=== PATIENT | female | born 1985 | race Caucasian/White ===

== ENCOUNTER → 2017-05-22 | Outpatient (REF) | payer BC, OTHER ==
[2017-05-22 13:49] LABS: CONTROL LINE HCG INT CTR LINE PRESENT
[2017-05-22 14:09] LABS: ALBUMIN 3.9 GM/DL (3.2-5.2); ALBUMIN/GLOBULIN RATIO 1.34 (1.00-1.93); ALKALINE PHOSPHATASE 79 U/L (45-117); ALT/SGPT 24 U/L (12-78); ANION GAP 8 MEQ/L (8-16); AST/SGOT 11 U/L (15-37); BILIRUBIN,TOTAL 0.6 MG/DL (0.2-1.0); BLOOD UREA NITROGEN 6 MG/DL (7-18); CALCIUM LEVEL 8.9 MG/DL (8.5-10.1); CARBON DIOXIDE LEVEL 26 MEQ/L (21-32); CHLORIDE LEVEL 107 MEQ/L (98-107); CREATININE FOR GFR 0.69 MG/DL (0.55-1.02); FREE T4 0.93 NG/DL (0.76-1.46); GLOMERULAR FILTRATION RATE > 60.0 (>60); GLUCOSE, FASTING 105 MG/DL (70-105); POTASSIUM SERUM 3.9 MEQ/L (3.5-5.1); SODIUM LEVEL 141 MEQ/L (136-145); TOTAL PROTEIN 6.8 GM/DL (6.4-8.2)
[2017-05-22 14:10] LABS: CONTROL LINE HPYORI INT CTR LINE PRESENT
[2017-05-22 14:16] LABS: BASO % 0.2 % (0.0-1.0); EOS % 0.6 % (0.0-3.0); LARGE UNSTAINED CELL # 0.1 K/mm3 (0.0-0.4); LARGE UNSTAINED CELL % 0.7 % (0.0-4.0); LYMPH # 2.1 K/mm3 (1.5-4.5); LYMPH % 23.4 % (24.0-44.0); MEAN CORPUSCULAR HEMOGLOBIN 31.8 pg (27.0-33.0); MEAN CORPUSCULAR HGB CONC 33.9 g/dl (32.0-36.5); MEAN CORPUSCULAR VOLUME 93.7 fl (80.0-96.0); MONO # 0.3 K/mm3 (0.0-0.8); MONO % 3.5 % (0.0-5.0); NEUTROPHILS # 6.3 K/mm3 (1.8-7.7); NEUTROPHILS % 71.6 % (36.0-66.0); PLATELET COUNT, AUTOMATED 227 k/mm3 (150-450); RED CELL DISTRIBUTION WIDTH 12.2 % (11.5-14.5); WHITE BLOOD COUNT 8.9 K/mm3 (4.0-10.0)
== END ==
LOC: M LAB REF 12:33
PROVIDERS: ATTEND Physician Assistant Medical
DX: R11.0 Nausea (principal); R53.83 Other fatigue

== ENCOUNTER → 2017-11-05 | Outpatient (REF) | payer OTHER ==
[2017-11-11 14:13] LABS: HPV HYBRID CAPTURE II Negative (Negative)
== END ==
LOC: M LAB REF 17:29
DX: Z12.4 Encounter for screening for malignant neoplasm of cervix (principal)

== ENCOUNTER → 2018-04-29 | Outpatient (CLI) | payer OTHER ==
[2018-04-29 13:18] LABS: BASO % 0.3 % (0.0-1.0); EOS # 0.1 10^3/uL (0.0-0.50); EOS % 0.9 % (0.0-3.0); HEMATOCRIT 41.8 % (36.0-47.0); HEMOGLOBIN 14.3 g/dl (12.0-15.5); IMMATURE GRANULOCYTE % 0.3 % (0-3.0); LYMPH # 2.2 10^3/uL (1.5-4.5); LYMPH % 30.8 % (24.0-44.0); MEAN CORPUSCULAR HEMOGLOBIN 32.1 pg (27.0-33.0); MEAN CORPUSCULAR HGB CONC 34.2 g/dl (32.0-36.5); MEAN CORPUSCULAR VOLUME 93.7 fl (80.0-96.0); MONO # 0.6 10^3/uL (0.0-0.8); MONO % 8.2 % (0.0-5.0); NEUTROPHILS # 4.2 10^3/uL (1.8-7.7); NEUTROPHILS % 59.5 % (36.0-66.0); PLATELET COUNT, AUTOMATED 222 10^3/uL (150-450); RED BLOOD COUNT 4.46 10^6/uL (4.00-5.40); RED CELL DISTRIBUTION WIDTH 11.9 % (11.5-14.5)
[2018-04-29 13:51] LABS: ALBUMIN 3.7 GM/DL (3.2-5.2); ALBUMIN/GLOBULIN RATIO 1.23 (1.00-1.93); ALKALINE PHOSPHATASE 72 U/L (45-117); ALT/SGPT 20 U/L (12-78); ANION GAP 8 MEQ/L (8-16); AST/SGOT 8 U/L (7-37); BILIRUBIN,TOTAL 0.6 MG/DL (0.2-1.0); BLOOD UREA NITROGEN 7 MG/DL (7-18); CALCIUM LEVEL 8.8 MG/DL (8.5-10.1); CARBON DIOXIDE LEVEL 26 MEQ/L (21-32); CHLORIDE LEVEL 109 MEQ/L (98-107); CREATININE FOR GFR 0.69 MG/DL (0.55-1.30); GLOMERULAR FILTRATION RATE > 60.0 (>60); GLUCOSE, FASTING 86 MG/DL (70-100); POTASSIUM SERUM 4.3 MEQ/L (3.5-5.1); SODIUM LEVEL 143 MEQ/L (136-145); TOTAL PROTEIN 6.7 GM/DL (6.4-8.2)
[2018-04-29 13:54] LABS: TOTAL 25(OH) VITAMIN D 33.4 NG/ML (30.0-100.0)
== END ==
LOC: M ADAMS 08:42
DX: R51 Headache (principal); E55.9 Vitamin D deficiency, unspecified
CPT/HCPCS: 84443

== ENCOUNTER → 2019-09-02 | Outpatient (REF) | payer BC, OTHER ==
[2019-09-02 13:46] LABS: HCG, SERUM QUALITATIVE POSITIVE (NEGATIVE)
[2019-09-02 14:15] LABS: HCG, SERUM QUANTITATIVE 1077 MIU/ML
== END ==
LOC: M LABDRWAD 12:36
PROVIDERS: ATTEND Physician Assistant
DX: N91.2 Amenorrhea, unspecified (principal)

== ENCOUNTER → 2019-09-05 | Outpatient (REF) | payer BC, OTHER | LOC: M LAB REF 09:31 | PROVIDERS: ATTEND Physician Assistant | DX: N91.2 Amenorrhea, unspecified (principal) ==

== ENCOUNTER → 2019-09-09 | Outpatient (REF) | payer BC, OTHER ==
[2019-09-09 19:47] LABS: BASO % 0.2 % (0.0-1.0); EOS # 0.1 10^3/uL (0.0-0.5); EOS % 0.8 % (0.0-3.0); HEMATOCRIT 38.8 % (36.0-47.0); LYMPH # 2.5 10^3/uL (1.5-5.0); LYMPH % 22.9 % (24.0-44.0); MEAN CORPUSCULAR HEMOGLOBIN 30.8 pg (27.0-33.0); MEAN CORPUSCULAR HGB CONC 33.5 g/dl (32.0-36.5); MEAN CORPUSCULAR VOLUME 91.9 fl (80.0-96.0); MONO # 0.7 10^3/uL (0.0-0.8); MONO % 6.4 % (0.0-5.0); NEUTROPHILS # 7.5 10^3/uL (1.5-8.5); NEUTROPHILS % 69.1 % (36.0-66.0); PLATELET COUNT, AUTOMATED 328 10^3/uL (150-450); RED BLOOD COUNT 4.22 10^6/uL (4.00-5.40); WHITE BLOOD COUNT 10.9 10^3/uL (4.0-10.0)
[2019-09-09 20:14] LABS: ALBUMIN 3.9 GM/DL (3.2-5.2); ALT/SGPT 13 U/L (12-78); BILIRUBIN,TOTAL 0.3 MG/DL (0.2-1.0); BLOOD UREA NITROGEN 6 MG/DL (7-18); CALCIUM LEVEL 9.1 MG/DL (8.5-10.1); CARBON DIOXIDE LEVEL 25 MEQ/L (21-32); CHLORIDE LEVEL 105 MEQ/L (98-107); CREATININE FOR GFR 0.58 MG/DL (0.55-1.30); GLOMERULAR FILTRATION RATE > 60.0 (>60); GLUCOSE, FASTING 84 MG/DL (70-100); HCG, SERUM QUANTITATIVE 12136 MIU/ML; POTASSIUM SERUM 3.7 MEQ/L (3.5-5.1); SODIUM LEVEL 137 MEQ/L (136-145)
== END ==
LOC: M LABDRWAD 09:54
PROVIDERS: ATTEND Physician Assistant
DX: N91.2 Amenorrhea, unspecified (principal); Z00.00 Encounter for general adult medical examination without abnormal findings

== ENCOUNTER → 2019-09-15 | Outpatient (REF) | payer BC, OTHER ==
[2019-09-15 17:14] LABS: HEMATOCRIT 37.9 % (36.0-47.0); HEMOGLOBIN 12.5 g/dl (12.0-15.5); MEAN CORPUSCULAR HEMOGLOBIN 29.8 pg (27.0-33.0); MEAN CORPUSCULAR VOLUME 90.5 fl (80.0-96.0); PLATELET COUNT, AUTOMATED 332 10^3/uL (150-450); RED BLOOD COUNT 4.19 10^6/uL (4.00-5.40); WHITE BLOOD COUNT 11.9 10^3/uL (4.0-10.0)
[2019-09-16 10:54] LABS: HEPATITIS C VIRUS ABY INDEX 0.2 INDEX (<0.8); HIV 1&2 SCREEN CENTAUR NEGATIVE (NEGATIVE); RUBELLA IgG QUALITATIVE IMMUNE (IMMUNE)
== END ==
LOC: M LAB REF 16:48
PROVIDERS: ATTEND Obstetrics & Gynecology
DX: O36.80X0 Pregnancy with inconclusive fetal viability, not applicable or unspecified (principal); Z3A.00 Weeks of gestation of pregnancy not specified

== ENCOUNTER → 2019-11-17 | Outpatient (REF) | payer BC | LOC: M LAB REF 12:58 | PROVIDERS: ATTEND Obstetrics & Gynecology | DX: O23.41 Unspecified infection of urinary tract in pregnancy, first trimester (principal) ==

== ENCOUNTER → 2020-01-30 | Outpatient (CLI) | payer BC ==
[2020-01-30 12:31] LABS: HEMATOCRIT 31.1 % (36.0-47.0); HEMOGLOBIN 10.9 g/dl (12.0-15.5); MEAN CORPUSCULAR HEMOGLOBIN 30.6 pg (27.0-33.0); MEAN CORPUSCULAR VOLUME 87.4 fl (80.0-96.0); PLATELET COUNT, AUTOMATED 236 10^3/uL (150-450); RED BLOOD COUNT 3.56 10^6/uL (4.00-5.40); WHITE BLOOD COUNT 8.7 10^3/uL (4.0-10.0)
== END ==
LOC: M LAB 10:19
PROVIDERS: ATTEND Obstetrics & Gynecology
DX: Z34.02 Encounter for supervision of normal first pregnancy, second trimester (principal)

== ENCOUNTER → 2020-05-09 | Outpatient (CLI) | payer BC ==
[~2020-05-09] MED LIST: BUPR150T5 PO; IBUP80TA PO
== END ==
LOC: M LABSMTC 12:16
PROVIDERS: ATTEND Anesthesiology
DX: Z01.812 Encounter for preprocedural laboratory examination (principal); Z20.828 Contact with and (suspected) exposure to other viral communicable diseases
CPT/HCPCS: C9803; U0002

== ENCOUNTER 2020-05-10 05:34 | Inpatient (IN) | payer BC ==
[~2020-05-10] VITALS: Ht 167.6 cm; Wt 87.3 kg
[2020-05-10] VITALS (7 sets, daily range): BP systolic 102–121; BP diastolic 64–83
[2020-05-10] MEDS ORDERED: BUPR150T5 PO (06:12)
[2020-05-10] MEDS ORDERED: LACTATED RINGER'S 1000 ML IV STA (06:17)
[2020-05-10] MEDS ORDERED: LR 1,000 ML IV SCH ×2 (06:17→09:30)
[2020-05-10] MEDS ORDERED: BICITRA 30ML SOLN UDC PO ONE (06:30)
[2020-05-10] MEDS ORDERED: ceFAZolin SOD 2 GM in IV 1 EA IV ONE (06:30)
[2020-05-10 06:39] LABS: HEMATOCRIT 32.6 % (36.0-47.0); HEMOGLOBIN 11.1 g/dl (12.0-15.5); MEAN CORPUSCULAR HEMOGLOBIN 29.3 pg (27.0-33.0); PLATELET COUNT, AUTOMATED 243 10^3/uL (150-450); RED BLOOD COUNT 3.79 10^6/uL (4.00-5.40); WHITE BLOOD COUNT 14.1 10^3/uL (4.0-10.0)
[2020-05-10] MEDS ORDERED: MORPHINE PRES-FREE INJ 10 MG/10 ML VIAL (J2274) As Ordered ONE (07:17)
[2020-05-10] MEDS ORDERED: OXYTOCIN INJ 10 UNITS/ML VIAL (J2590) As Ordered ONE (07:19)
[2020-05-10] MEDS ORDERED: ONDANSETRON 4MG/2ML VIAL IV PRN ×2 (07:47→09:30)
[2020-05-10] MEDS ORDERED: NALBUPHINE HCL 10 MG/ML AMP (J2300) IV PRN ×2 (07:47→09:30)
[2020-05-10] MEDS ORDERED: NALOXONE INJ 0.4MG/1ML VIAL (J2310 PER 1MG) IV PRN ×2 (07:47)
[2020-05-10] MEDS ORDERED: diphenhydrAMINE 50MG/ML VIAL (J1200) IV PRN (07:47)
[2020-05-10] MEDS ORDERED: METOCLOPRAMIDE INJ 10MG/2ML VIAL (J2765 PER 1) IV PRN (07:47)
[2020-05-10] MEDS ORDERED: ONDANSETRON 4MG/2ML VIAL As Ordered ONE (08:04)
[2020-05-10] MEDS ORDERED: KETOROLAC 60MG 2ML VIAL As Ordered ONE (08:04)
[2020-05-10] MEDS ORDERED: dexameTHASONE 4 MG/ML 1ML VIAL (J1100 PER 1MG) As Ordered ONE (08:04)
[2020-05-10] MEDS ORDERED: fentaNYL 100 MCG/2 ML INJECTION (J3010) As Ordered ONE (08:22)
[2020-05-10] MEDS ORDERED: OXYTOCIN DRIP 30 UNITS in IV 1 EA IV SCH (08:58)
[2020-05-10] MEDS: PRENATAL VITAMINS CHEWABLE TABLET PO SCH (09:00)
[2020-05-10] MEDS ORDERED: RHOGAM 300 MCG (1500 IU) INJ (J2790) IM SCH (09:00)
[2020-05-10] MEDS ORDERED: MOM 30ML SUSPENSION UDC PO PRN (09:00)
[2020-05-10] MEDS: DOCUSATE SODIUM 100 MG CAP PO SCH ×2 (09:00→20:09)
[2020-05-10] MEDS ORDERED: MEASLES,MUMPS,RUBELLA VACCINE INJ (MMR-II) (90707) SC SCH (09:00)
[2020-05-10] MEDS ORDERED: PERCOCET 5MG/325MG TAB PO PRN (09:00)
[2020-05-10] MEDS ORDERED: OXYTOCIN 30 UNITS IN 0.9% NaCl 500ML IV BAG (J2590) As Ordered ONE (09:15)
[2020-05-10] MEDS ORDERED: fentaNYL 100 MCG/2 ML INJECTION (J3010) IV PRN (09:30)
[2020-05-10] MEDS ORDERED: oxyCODONE 5MG TAB PO PRN (09:30)
[2020-05-10] MEDS ORDERED: IBUPROFEN 800 MG TAB PO SCH ×2 (09:30→16:00)
[2020-05-10 10:52] LABS: CORD GAS HCO3 A 23.6 MEQ/L; CORD GAS PCO2 A 52.7 mmHg; CORD GAS PH A 7.269 UNITS; CORD GAS PO2 A 17.7 mmHg; CORD GAS TCO2 A 25.2 MEQ/L
[2020-05-10 10:53] LABS: CORD GAS HCO3 V 19.2 MEQ/L; CORD GAS O2 SAT A 34.3 %; CORD GAS PCO2 V 37.6 mmHg; CORD GAS PH V 7.326 UNITS; CORD GAS PO2 V 32.1 mmHg; CORD GAS SBC A 19.7 MEQ/L; CORD GAS TCO2 V 20.4 MEQ/L
[2020-05-10 10:54] LABS: CORD GAS ABE V -6.1; CORD GAS O2 SAT V 76.1 %
[2020-05-10] MEDS: IBUPROFEN 800 MG TAB PO SCH (17:00)
[2020-05-11] MEDS: IBUPROFEN 800 MG TAB PO SCH ×3 (01:33→16:57)
[2020-05-11 01:36] VITALS: BP 115/81
[2020-05-11 06:00] VITALS: BP 116/66
[2020-05-11] MEDS ORDERED: IBUP80TA PO (08:39)
[2020-05-11] MEDS: DOCUSATE SODIUM 100 MG CAP PO SCH ×2 (08:54→22:01)
[2020-05-11] MEDS: PRENATAL VITAMINS CHEWABLE TABLET PO SCH (08:54)
[2020-05-11 09:45] LABS: HEMATOCRIT 27.7 % (36.0-47.0); HEMOGLOBIN 9.5 g/dl (12.0-15.5); MEAN CORPUSCULAR HEMOGLOBIN 30.2 pg (27.0-33.0); MEAN CORPUSCULAR HGB CONC 34.3 g/dl (32.0-36.5); MEAN CORPUSCULAR VOLUME 87.9 fl (80.0-96.0); PLATELET COUNT, AUTOMATED 217 10^3/uL (150-450); RED BLOOD COUNT 3.15 10^6/uL (4.00-5.40); WHITE BLOOD COUNT 11.8 10^3/uL (4.0-10.0)
[2020-05-11 10:00] VITALS: BP 130/79
[2020-05-11 14:00] VITALS: BP 130/69
[2020-05-11] MEDS ORDERED: IBUPROFEN 800 MG TAB PO SCH (16:00)
[2020-05-11 18:00] VITALS: BP 131/73
[2020-05-11 22:46] VITALS: BP 137/77
[2020-05-12] MEDS: IBUPROFEN 800 MG TAB PO SCH ×2 (01:03→08:53)
[2020-05-12 06:01] VITALS: BP 119/75
[2020-05-12] MEDS: PRENATAL VITAMINS CHEWABLE TABLET PO SCH (08:53)
[2020-05-12] MEDS: DOCUSATE SODIUM 100 MG CAP PO SCH (08:53)
--- NOTE | 2020-05-24 10:15 | RO ---
DATE OF OPERATION: 05/10/2020 INDICATIONS: Alyssia is 34-year-old female 1, para 0, who is post-EDC who desires delivery via section. The patient was also found to have a narrow pubic bone with a floating presentation. After extensive counseling in the office, the decision was made to proceed with a section. PRE-OPERATIVE DIAGNOSES: 1. Post-estimated date of conception, desires delivery via section. 2. 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 POST-OPERATIVE DIAGNOSES: 1. Post-estimated date of conception, desires delivery via section. 2. 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 3. Jeannine breech noted at the time of delivery. PROCEDURE: Primary section. Breech extraction. ANESTHESIA: Spinal. SURGEON: Wayne Tejeda D.O. REPAIR ARMATURE WINDER: Brad MORALES. ESTIMATED BLOOD LOSS: 500 mL. FINDINGS: Live female infant in jeannine breech position. 9 and 9. weight 6 pounds 6 ounces. Normal-appearing tubes and ovaries. Normal placenta. DESCRIPTION OF PROCEDURE: After obtaining informed consent, the patient was taken to the operating room where spinal anesthetic was found to be adequate. She was then draped and prepped in the usual sterile fashion in the supine position. At this point, a Pfannenstiel incision was made. With the help of my shipping assistant, the incision was carried down to the fascia. The fascia was incised in the midline fascia. This was carried through laterally. The superior aspect was dissected in a similar fashion. Peritoneum was identified. Peritoneal cavity was entered bluntly. Superior and inferior dissection of the peritoneum was then done with good visualization of the bladder. At this point, a Mobius skin retractor was placed. A low transverse uterine incision was made. The infant was delivered in an atraumatic fashion via breech extraction. The cord blood and cord gas was sent. Placenta removed manually. Uterus cleared of all clots and debris. Uterine incision was then repaired in two separate layers of 0-Vicryl sutures. The pelvis was copiously irrigated with normal saline and suctioned out. Attention was turned to the peritoneum, which was closed in a running fashion using 2-0 Vicryl. The fascia was closed in two separate segments of 0-Vicryl sutures. All superficial bleeders were coagulated. The skin was reapproximated in a subcuticular fashion using 3-0 Vicryl in a Ambrocio, Steri-Strips placed. Patient tolerated the procedure well. She was then transferred to the recovery room in stable condition. ERICK
--- NOTE | 2020-05-29 11:48 | DSES ---
DATE OF ADMISSION: 05/10/2020. DATE OF DISCHARGE: 05/12/2020. BRIEF HISTORY: A 34-year-old, G1, at 40 and 4/7 gestation, who presented for section due to breech presentation. She was also noted to have a narrow pubic arch. HOSPITAL COURSE: On 05/10/2020, the patient underwent primary section without complications. Her postoperative course was unremarkable. She had adequate return of bowel and bladder function. Postoperative hemoglobin was 9.5 grams/dL. She is deemed stable for discharge on postoperative day #2. ADMISSION DIAGNOSIS: term, breech. DISCHARGE DIAGNOSIS: Delivered. PROCEDURE: Primary section. DISPOSITION: Patient is to follow-up with Dr. Tejeda in two weeks. Instructions were reviewed. ERICK
== END 2020-05-12 11:30 | disposition home or self-care (01) | DRG 540 ==
LOC: M LDI 05:34 → M OBS 10:11
PROVIDERS: ADMIT Obstetrics & Gynecology; ATTEND Obstetrics & Gynecology
PROC: 10D00Z1 Extraction of Products of Conception, Low, Open Approach (ICD-10-PCS; principal; 2020-05-10 07:30)
DX: O32.4XX0 Maternal care for high head at term, not applicable or unspecified (principal); O48.0 Post-term pregnancy; Z37.0 Single live birth; Z3A.40 40 weeks gestation of pregnancy; O32.1XX0 Maternal care for breech presentation, not applicable or unspecified

== ENCOUNTER → 2021-08-06 | Outpatient (REF) | payer BC | LOC: M LAB REF 12:37 | PROVIDERS: ATTEND Physician Assistant Medical | DX: J02.9 Acute pharyngitis, unspecified (principal) ==

== ENCOUNTER → 2021-11-19 | Outpatient (CLI) | payer BC ==
[2021-11-19 10:49] LABS: BASO % 0.3 % (0.0-1.0); EOS # 0.1 10^3/uL (0.0-0.5); EOS % 1.1 % (0.0-3.0); HEMATOCRIT 40.3 % (36.0-47.0); HEMOGLOBIN 13.7 g/dl (12.0-15.5); LYMPH # 2.3 10^3/uL (1.5-5.0); LYMPH % 37.3 % (24.0-44.0); MEAN CORPUSCULAR HEMOGLOBIN 29.7 pg (27.0-33.0); MEAN CORPUSCULAR VOLUME 87.4 fl (80.0-96.0); MONO # 0.5 10^3/uL (0.0-0.8); MONO % 8.5 % (2.0-8.0); NEUTROPHILS # 3.2 10^3/uL (1.5-8.5); NEUTROPHILS % 52.5 % (36.0-66.0); PLATELET COUNT, AUTOMATED 251 10^3/uL (150-450); RED BLOOD COUNT 4.61 10^6/uL (4.00-5.40); WHITE BLOOD COUNT 6.1 10^3/uL (4.0-10.0)
[2021-11-19 11:33] LABS: ALT/SGPT 25 U/L (12-78); BILIRUBIN,TOTAL 0.5 MG/DL (0.2-1.0); BLOOD UREA NITROGEN 10 MG/DL (7-18); CARBON DIOXIDE LEVEL 28 MEQ/L (21-32); CHLORIDE LEVEL 109 MEQ/L (98-107); CREATININE FOR GFR 0.63 MG/DL (0.55-1.30); FREE T4 0.97 NG/DL (0.76-1.46); GLOMERULAR FILTRATION RATE > 60.0 (>60); GLUCOSE, FASTING 93 MG/DL (70-100); IRON (FE) 105 UG/DL (50-170); PERCENT SATURATION 28.5 % (13.2-45.0); POTASSIUM SERUM 4.5 MEQ/L (3.5-5.1); SODIUM LEVEL 140 MEQ/L (136-145); TOTAL IRON BINDING CAPACITY 369 UG/DL (250-450); TOTAL PROTEIN 7.1 GM/DL (6.4-8.2)
[2021-11-19 12:35] LABS: TOTAL 25(OH) VITAMIN D 30.1 NG/ML (30.0-100.0)
== END ==
LOC: M PLALAB 08:12
PROVIDERS: ATTEND Nurse Practitioner Family
DX: R53.83 Other fatigue (principal)

== ENCOUNTER → 2022-08-25 | Outpatient (REF) | payer BC, OTHER ==
[~2022-08-25] MED LIST changes: +BUPR-71 PO; -BUPR150T5 PO
== END ==
LOC: M LAB REF 17:13
PROVIDERS: ATTEND Nurse Practitioner Family
DX: Z01.419 Encounter for gynecological examination (general) (routine) without abnormal findings (principal)
CPT/HCPCS: 87624; G0123

== ENCOUNTER → 2023-04-14 | Outpatient (REF) | payer BC, OTHER ==
[2023-04-14 13:19] LABS: HEMOGLOBIN A1c 5.3 % (4.0-6.0)
[2023-04-14 13:33] LABS: THYROID STIMULATING HORMONE 1.545 uIU/ML (0.55-4.78)
[2023-04-14 13:34] LABS: FREE T4 1.01 NG/DL (0.89-1.76)
[2023-04-14 13:36] LABS: ALBUMIN 3.9 G/DL (3.2-5.2); ALKALINE PHOSPHATASE 89 U/L (46-116); ALT/SGPT 19 U/L (7.0-40); AST/SGOT < 8 U/L (<34); BILIRUBIN,TOTAL 0.6 MG/DL (0.3-1.2); BLOOD UREA NITROGEN 8 MG/DL (9-23); CALCIUM LEVEL 9.2 MG/DL (8.5-10.1); CARBON DIOXIDE LEVEL 25 MMOL/L (20-31); CHLORIDE LEVEL 106 MMOL/L (98-107); CREATININE FOR GFR 0.57 MG/DL (0.55-1.30); GLOMERULAR FILTRATION RATE > 60.0 (>60); GLUCOSE, FASTING 107 MG/DL (60-100); POTASSIUM SERUM 4.2 MMOL/L (3.5-5.1); SODIUM LEVEL 140 MMOL/L (136-145); TOTAL PROTEIN 6.5 G/DL (5.7-8.2)
== END ==
LOC: M LABDRWAD 12:37
PROVIDERS: ATTEND Registered Nurse
DX: E66.9 Obesity, unspecified (principal)